=== PATIENT | male | born 2000 | race Two or more races ===

== ENCOUNTER 2024-04-30 20:20 | Emergency (ER) | payer MEDICAID ==
[~2024-04-30] VITALS: Ht 177.8 cm; Wt 72.7 kg
[~2024-04-30 20:20] MED LIST: CLIN1CAP70 PO; DIPH25TA54 PO; PRED20TA2 PO
[2024-04-30 21:46] VITALS: PULSE 78; RESP 16; O2SAT 98
[2024-04-30] MEDS: LIDOCAINE 1% HCL (LOCAL ANESTH.) INJ 20ML MDV ID ONE (21:46)
[2024-04-30] MEDS ORDERED: ACET500T58 PO (22:26)
[2024-04-30] MEDS ORDERED: BACDST PO (22:26)
[2024-04-30] MEDS ORDERED: IBUP1TAB5 PO (22:26)
[2024-04-30 22:49] VITALS: BP 143/90; PULSE 78; RESP 18; TEMP 98.4; O2SAT 98
[2024-04-30] MEDS: SULFAMETHOX W/TRIMETH(800/160MG) DS TAB PO ONE (22:49)
== END 2024-04-30 22:50 | disposition home or self-care (01) ==
LOC: ER 20:20
DX: S61.411A Laceration without foreign body of right hand, initial encounter (principal); Z88.8 Allergy status to other drugs, medicaments and biological substances; Z79.899 Other long term (current) drug therapy; W45.8XXA Other foreign body or object entering through skin, initial encounter; Y93.89 Activity, other specified; Y92.89 Other specified places as the place of occurrence of the external cause; Y99.8 Other external cause status
CPT/HCPCS: 12001; J2001